=== PATIENT | female | born 1945 | race Caucasian/White ===

== ENCOUNTER 2025-07-06 19:29 | Emergency (ER) | payer MEDICARE, MEDICAID ==
[~2025-07-06] VITALS: Ht 160 cm; Wt 61.3 kg
[2025-07-06 19:50] VITALS: TEMP 98.2
--- NOTE | 2025-07-06 21:52 | RADIOLOGY REPORT ---
CLINICAL INDICATION: right hip pain TECHNIQUE: 3 views of the right hip. Comparison: None FINDINGS/IMPRESSION: There is no evidence of acute fracture or dislocation. Soft tissues are unremarkable.
--- NOTE | 2025-07-06 22:12 | Physician Documentation ---
History of Present Illness ~ Chief Complaint: Hip pain Stated Complaint: HIP PAIN Time Seen by MD: 21:03 HPI Patient is seen today with complaints of right-sided low back pain/SI joint pain or right hip pain. Patient states he has been walking a little more as her is now in a from an care facility and her back and right hip or hurting her more. Patient denies any recent treatment or eval by orthopedics or physical therapy. She denies any saddle anesthesia or changes in bowel or bladder habits. She has no other concern or complaint at this time. Medication Reconciliation Allergies: Uncoded Allergies: PENICILLIN (Allergy, Unknown, 07/06/25) Review of Systems Constitutional: Denies: chills, fever, weakness Eyes: Denies: pain, blurred vision ENT: Denies: ear pain, nose pain, throat pain, mouth pain Respiratory: Denies: cough, shortness of breath Cardiovascular: Denies: chest pain, palpitations Gastrointestinal: Denies: abdominal pain, nausea, vomiting Genitourinary: Denies: burning, dysuria Female Genitalia: Denies: vaginal discharge, pelvic pain Neurological: Denies: headache, dizziness Musculoskeletal: Denies: pain, swelling Integumentary: Denies: rash, lesions Allergic/Immunologic: Denies: hives, itching Hematologic/Lymphatic: Denies: no symptoms reported Psychiatric: Denies: depression, anxiety Physical Exam Vital Signs: Temperature: 98.2, Heart Rate: 67, Respiratory Rate: 16, BP: 140/71, Pulse Oximetry: 97, Weight: 61.300 Oxygen Flow Rate: 0 Physical Exam General: Awake and Alert, no acute distress. HEENT: Conjunctiva pink, Sclera clear, Mucus Membranes moist. Neck: Supple without masses and tenderness. Resp: Unlabored. Lungs clear to auscultation bilaterally. Heart: Regular Rate and rhythm, normal S1 and S2 without murmur, rub or gallop. Musculoskeletal: Patient on exam does have significant decreased range of motion of the lumbar spine in all planes of motion. Patient is neurovascularly intact distally. Motor function is intact distally. Strength is decreased due to pain. Extremities: No cyanosis,clubbing or edema. Skin: Warm and Dry. Progress Results/Orders Results/Orders Orders - UCHE AREVALO PAC Hip Unilateral 2 Views (07/06/25 21:30) Lumbar Spine Limited (07/06/25 21:30) Completed Orders - UCHE AREVALO PAC Hip Unilateral 2 Views (07/06/25 21:30) Lumbar Spine Limited (07/06/25 21:30) Vital Signs 07/06/25 19:50 Temp 98.2 Pulse 67 Resp 16 B/P (MAP) 140/71 Pulse Ox 97 O2 Flow Rate 0 EKG/XRAY/CT/US/VASC/MRI Bone/Soft Tissue X-Ray (Spine) : Additional Comment DIAGNOSTIC RADIOLOGY Patient: JASMIN POOLE Medical Record: [id number] [facility] : 1945, Age: 79 Sex: Female Location: ER Patient Status: [facility] ER Service Date/Time: 07/06/252129 Ordering Physician: UCHE AREVALO PAC Exam: LUMBAR SPINE LIMITED INDICATION: Lumbar PAIN COMPARISON: None TECHNIQUE: 3 views of the lumbar spine were obtained. FINDINGS: There are 5 [id number]-bzz-urjxnan lumbar type vertebral bodies. There is left convexity scoliosis of the lumbar spine. Sacroiliac joints are maintained. Cvqr-zm-[id number] bilateral hip joint space narrowing. There is grade 1 anterolisthesis at L5-S1. Alignment of the lumbar spine otherwise maintained. There is bony demineralization. There is a moderate greater than 50% height loss compression fracture of T12 which appears chronic. Mild superior endplate compression fracture of L3 with 25% height loss, and cortical offset is seen. Otherwise no acute appearing fracture. Vertebral body heights in the lumbar spine are maintained. There is mild multilevel lumbar spondylosis with multilevel mild disc space narrowing, osteophyte formation, and multilevel facet hypertrophy. There is calcified athero sclerosis visualized in the expected location of the abdominal aorta. Cholecystectomy clips are seen. Visualized bowel gas is nonobstructed. IMPRESSION: Mild superior endplate compression fracture of L3 with less than 25% height loss, possibly recent. Chronic appearing moderate compression fracture of T12 with greater than 50% height loss. Multilevel lumbar spondylosis with multilevel mild disc space narrowing, osteophyte formation, and facet hypertrophy. Electronically Signed by:SEVERINO HICKS MD Date & Time: 07/06/252245 Dictated by: SEVERINO HICKS MD Dictation date and time: 07/06/252245 Primary Care Provider: NO PRIMARY CARE PROVIDER cc: UCHE AREVALO PAC ~ Bone/Soft Tissue X-Ray (Ext.) : Additional Comment DIAGNOSTIC RADIOLOGY Patient: JASMIN POOLE Medical Record: [id number] [facility] : 1945, Age: 79 Sex: Female Location: ER Patient Status: [facility] ER Service Date/Time: 07/06/252129 Ordering Physician: UCHE AREVALO PAC Exam: HIP UNILATERAL 2 VIEWS CLINICAL INDICATION: right hip pain TECHNIQUE: 3 views of the right hip. Comparison: None FINDINGS/IMPRESSION: There is no evidence of acute fracture or dislocation. Soft tissues are unremarkable. Electronically Signed by:STEPHEN SOLANO MD Date & Time: 07/06/252149 Dictated by: STEPHEN SOLANO MD Dictation date and time: 07/06/252149 Primary Care Provider: NO PRIMARY CARE PROVIDER cc: UCHE AREVALO PAC ~ Medical Decision Making Findings Patient is seen today with complaints of right-sided low back pain/SI joint pain or right hip pain. Patient states he has been walking a little more as her hu sband is now in a from an care facility and her back and right hip or hurting her more. Patient denies any recent treatment or eval by orthopedics or physical therapy. She denies any saddle anesthesia or changes in bowel or bladder habits. She has no other concern or complaint at this time. Patient did have x-rays of her right hip as well as lumbar spine. Right hip showed no significant abnormalities. Patient's lumbar spine shows significant arthritis and degenerative disc disease as well as compression fracture of T12. Patient was given prescription for meloxicam 15 mg one tab once a day to be taken with food as well as methocarbamol muscle relaxer. Patient strongly advised to follow up with primary care for referral to physical therapy as well as orthopedic software implementation specialist for further eval and treatment. Patient will return to ED with any worsening, concerning or changing symptoms. Departure Disposition: HOME / SELF CARE / HOMELESS Impression: Primary Impression: Hip pain Qualified Codes: M25.551 - Pain in right hip Additional Impression: Lumbar degenerative disc disease Qualified Codes: M51.362 - Other intervertebral disc degeneration, lumbar region with discogenic back pain and lower extremity pain Condition: Improved Discharge Instructions: Arthritis, Nonspecific Additional Instructions: Patient did have x-rays of her right hip as well as lumbar spine. Right hip showed no significant abnormalities. Patient's lumbar spine shows significant arthritis and degenerative disc disease as well as compression fracture of T12. Patient was given prescription for meloxicam 15 mg one tab once a day to be taken with food as well as methocarbamol muscle relaxer. Patient strongly advised to follow up with primary care for referral to physical therapy as well as orthopedic software implementation specialist for further eval and treatment. Patient will return to ED with any worsening, concerning or changing symptoms. Referrals: NO PRIMARY CARE PROVIDER (PCP) Prescriptions Methocarbamol (Methocarbamol) 750 Mg Tablet 1 TAB PO Q8H for 30 Days, #90 TAB 0 Refills Prov: UCHE AREVALO 07/06/25 Meloxicam (Meloxicam) 15 Mg Tablet 1 TAB PO DAILY for 30 Days, #30 TAB 0 Refills Prov: UCHE AREVALO 07/06/25 Signature Scribe Signature: No scribe Attestation: No scribe UCHE AREVALO Jul 06, 2025 22:12
[2025-07-06] MEDS ORDERED: MELO-102 PO (22:43)
[2025-07-06] MEDS ORDERED: METH-798 PO (22:43)
--- NOTE | 2025-07-06 22:48 | RADIOLOGY REPORT ---
INDICATION: Lumbar PAIN COMPARISON: None TECHNIQUE: 3 views of the lumbar spine were obtained. FINDINGS: There are 5 [id number]-[id number] lumbar type vertebral bodies. There is left convexity scoliosis of the l umbar spine. Sacroiliac joints are maintained. Irsl-en-wtluchay bilateral hip joint space narrowing. There is grade 1 anterolisthesis at L5-S1. Alignment of the lumbar spine otherwise maintained. Ther e is bony demineralization. There is a moderate greater than 50% height loss compression fracture of T12 which appears chronic. Mild superior endplate compression fracture of L3 with 25% height loss, an d cortical offset is seen. Otherwise no acute appearing fracture. Vertebral body heights in the lumb ar spine are maintained. There is mild multilevel lumbar spondylosis with multilevel mild disc space narrowing, osteophyte formation, and multilevel facet hypertrophy. There is calcified athero sclerosis visualized in the expected location of the abdominal aorta. Chol ecystectomy clips are seen. Visualized bowel gas is nonobstructed. IMPRESSION: Mild superior endplate compression fracture of L3 with less than 25% height loss, possibly recent. Chronic appearing moderate compression fracture of T12 with greater than 50% height loss. Multilevel lumbar spondylosis with multilevel mild disc space narrowing, osteophyte formation, and fa cet hypertrophy.
[2025-07-06 23:03] VITALS: BP 138/70; PULSE 65; RESP 16; O2SAT 99
[2025-07-06] MEDS: ibuprofen tablet 400 MG TABLET PO STA (23:05)
== END 2025-07-06 23:15 | disposition home or self-care (01) ==
LOC: ER 19:29
DX: M51.369 Other intervertebral disc degeneration, lumbar region without mention of lumbar back pain or lower extremity pain (principal); M25.551 Pain in right hip
CPT/HCPCS: 72100; 73502; 99284